=== PATIENT | female | born 1995 | race Caucasian/White ===

== ENCOUNTER 2017-10-29 22:20 | Emergency (ER) | payer MEDICAID ==
[~2017-10-29] VITALS: Ht 170.2 cm; Wt 177.8 kg
[2017-10-29 22:28] VITALS: Ht 170.2 cm; Wt 177.8 kg
[2017-10-30 03:17] VITALS: BP 148/79
== END 2017-10-30 03:17 | disposition home or self-care (01) ==
LOC: ED 22:20
DX: K29.70 Gastritis, unspecified, without bleeding (principal)
CPT/HCPCS: Q0162